=== PATIENT | male | born 1945 | race Caucasian/White ===

== ENCOUNTER 2017-11-10 20:40 | Outpatient (CLI) | payer OTHER, MEDICARE | END 2017-11-10 20:41 | disposition short-term general hospital (02) | LOC: EMS 20:40 | PROVIDERS: ATTEND Surgery | DX: R55 Syncope and collapse (principal); R10.9 Unspecified abdominal pain; R19.7 Diarrhea, unspecified | CPT/HCPCS: A0425; A0427 ==

== ENCOUNTER 2024-04-24 01:11 | Outpatient (CLI) | payer MEDICARE, OTHER | END 2024-04-24 23:59 | disposition critical access hospital (66) | LOC: EMS 01:11 | DX: R10.84 Generalized abdominal pain (principal); R14.0 Abdominal distension (gaseous); R23.1 Pallor; R42 Dizziness and giddiness; R11.0 Nausea | CPT/HCPCS: A0425; A0427 ==

== ENCOUNTER 2024-04-24 01:36 | Emergency (ER) | payer MEDICARE, OTHER ==
[2024-04-24 02:03] LABS: BASOPHILS % (AUTO) 0.2 %; HCT - HEMATOCRIT 39.9 % (42.0-52.0); HGB - HEMOGLOBIN 13.2 g/dL (14.0-18.0); LYMPHOCYTES % (AUTO) 8.1 %; MEAN CORPUSCULAR HEMOGLOBIN 31.1 pg (27.0-31.0); MEAN CORPUSCULAR HGB CONC 33.1 g/dL (32.0-36.0); MEAN CORPUSCULAR VOLUME 94.1 fL (80.0-94.0); MEAN PLATELET VOLUME 9.9 fL (7.4-11.4); MONOCYTES # (AUTO) 0.7 10^3/uL (0.0-1.0); MONOCYTES % (AUTO) 5.5 %; NEUTROPHILS # (AUTO) 10.1 10^3/uL (1.5-6.6); NEUTROPHILS % (AUTO) 85.9 %; PLT - PLATELET COUNT 215 10^3/uL (130-450); RED BLOOD COUNT 4.24 10^6/uL (4.70-6.10); RED CELL DISTRIBUTION WIDTH 12.6 % (12.0-15.0); WHITE BLOOD COUNT 11.8 x10^3/uL (4.8-10.8)
--- NOTE | 2024-04-24 02:10 | ED Physician Documentation ---
PD HPI ABD PAIN - Stated complaint Stated Complaint: ABD PAIN. CARDIOVERTED TODAY - Chief complaint Chief Complaint: Abd Pain - History obtained from History obtained from: Patient - Additional information Additional information: Patient is an 78-year-old male with a history of atrial fibrillation on Eliquis presenting for evaluation of generalized abdominal pain with associated nausea starting around 3:00 this afternoon. Patient was seen at the [facility] this morning for a cardioversion related to atrial flutter. He started to have pain on the way back home while [place] on the boat. Denies prior history of abdominal surgeries - Inguinal hernia repair. Decreased appetite tonight. Had a bowel movement this evening. No diarrhea. reports she is now having some lower abdominal pain with diarrhea this evening. Denies fever, chest pain, shortness of air. Last dose of Eliquis was at 11 PM. Review of Systems Constitutional: denies: Fever Cardiac: denies: Chest pain / pressure Respiratory: denies: Dyspnea GI: reports: Abdominal Pain, Nausea PD PAST MEDICAL HISTORY - Past Medical History Past Medical History: Yes Cardiovascular: Atrial fibrillation Respiratory: None Endocrine/Autoimmune: None GI: None : None Psych: None Musculoskeletal: None Derm: None - Present Medications Home Medications: Ambulatory Orders Medication Instructions Recorded Confirmed Amiodarone [Pacerone] 200 mg PO DAILY 04/24/24 04/24/24 Apixaban [Eliquis] 5 mg PO BID 04/24/24 04/24/24 Losartan Potassium 50 mg PO BID 04/24/24 04/24/24 Perindopril Erbumine 1.25 mg PO DAILY 04/24/24 04/24/24 Potassium Chloride 10 meq PO DAILY 04/24/24 04/24/24 amLODIPine [Norvasc] 5 mg PO DAILY 04/24/24 04/24/24 - Allergies Allergies/Adverse Reactions: Allergies Allergy/AdvReac Type Severity Reaction Status Date / Time No Known Drug Allergies Allergy Verified 04/24/24 01:43 - Social History Does the pt smoke?: No Smoking Status: Never smoker Does the pt drink ETOH?: No Does the pt have substance abuse?: No - Immunizations Immunizations are current?: Yes - POLST Patient has POLST: No PD ED PE NORMAL - General General: Alert and oriented X 3, No acute distress, Well developed/nourished - HEENT HEENT: Atraumatic, Moist mucous membranes, Pharynx benign - Neck Neck: Supple, no meningeal sign - Cardiac Cardiac: RRR, Strong equal pulses - Respiratory Respiratory: No respiratory distress, Clear bilaterally - Abdomen Abdomen: Normal bowel sounds, Soft, Non distended, Other (Generalized abdominal tenderness, no rebound) - Derm Derm: Warm and dry - Neuro Neuro: Normal speech Results - Vitals Vitals: Vital Signs - 24 hr 04/24/24 04/24/24 04/24/24 01:45 03:58 05:15 Temperature 36.5 C Heart Rate 65 56 L 87 Respiratory 16 20 16 Rate Blood Pressure 146/80 H 138/74 H 142/92 H O2 Saturation 100 98 98 If not protocol 2 2 : Oxygen Flow, liters/minute 04/24/24 07:00 Temperature Heart Rate 92 Respiratory 19 Rate Blood Pressure 129/94 H O2 Saturation 98 If not protocol 2 : Oxygen Flow, liters/minute Oxygen O2 Source Nasal cannula - EKG (time done) 0220 EKG releavant findings:: EKG personally interpreted by author of this note. Relevant findings are: Rate 56, normal sinus rhythm, no STEMI, QTc 455 - Labs Labs: Laboratory Tests 04/24/24 04/24/24 04/24/24 01:57 01:57 01:57 WBC 11.8 H RBC 4.24 L Hgb 13.2 L Hct 39.9 L MCV 94.1 H MCH 31.1 H MCHC 33.1 RDW 12.6 Plt Count 215 MPV 9.9 Neut # (Auto) 10.1 H Lymph # (Auto) 1.0 L Norman # (Auto) 0.7 Eos # (Auto) 0.0 Baso # (Auto) 0.0 Absolute Nucleated RBC 0.00 Nucleated RBC % 0.0 PT 16.1 H INR 1.5 H Sodium 135 Potassium 4.0 Chloride 98 L Carbon Dioxide 28 Anion Gap 9.0 BUN 23 H Creatinine 1.3 Estimated GFR (MDRD) 53 L Glucose 162 H POC Whole Bld Glucose Lactic Acid Calcium 9.6 Total Bilirubin 0.5 AST 13 ALT 15 Alkaline Phosphatase 41 L Total Protein 6.5 Albumin 4.1 Globulin 2.4 Albumin/Globulin Ratio 1.7 Lipase < 10 L 04/24/24 04/24/24 04/24/24 04:00 07:46 07:46 WBC 17.2 H RBC 4.99 Hgb 15.4 Hct 47.6 MCV 95.4 H MCH 30.9 MCHC 32.4 RDW 12.6 Plt Count 253 MPV 10.4 Neut # (Auto) 14.6 H Lymph # (Auto) 1.4 L Norman # (Auto) 1.1 H Eos # (Auto) 0.0 Baso # (Auto) 0.0 Absolute Nucleated RBC 0.00 Nucleated RBC % 0.0 PT INR Sodium 135 Potassium 3.9 Chloride 97 L Carbon Dioxide 25 Anion Gap 13.0 BUN 26 H Creatinine 1.6 H Estimated GFR (MDRD) 42 L Glucose 236 H POC Whole Bld Glucose Lactic Acid 1.3 Calcium 9.5 Total Bilirubin AST ALT Alkaline Phosphatase Total Protein Albumin Globulin Albumin/Globulin Ratio Lipase 04/24/24 04/24/24 07:46 08:34 WBC RBC Hgb Hct MCV MCH MCHC RDW Plt Count MPV Neut # (Auto) Lymph # (Auto) Norman # (Auto) Eos # (Auto) Baso # (Auto) Absolute Nucleated RBC Nucleated RBC % PT INR Sodium Potassium Chloride Carbon Dioxide Anion Gap BUN Creatinine Estimated GFR (MDRD) Glucose POC Whole Bld Glucose 294 H Lactic Acid 3.0 H* Calcium Total Bilirubin AST ALT Alkaline Phosphatase Total Protein Albumin Globulin Albumin/Globulin Ratio Lipase PD Medical Decision Making - ED course Complexity details: reviewed results, re-evaluated patient, d/w patient ED course: Patient is an 78-year-old male with a history of A-fib on Eliquis presenting for evaluation of abdominal pain with nausea today. He did undergo a cardioversion for atrial fibrillation earlier today. He did take his Eliquis this evening. CBC, chemistries were obtained and reviewed. WBC 11.8. Patient did require repeated doses of IV morphine and Dilaudid for pain control along with Zofran and IV fluids. Due to requiring repeated doses of pain medications I did have concerns for possible mesenteric ischemia with pain out of proportion and did order the CT scan of the abdomen pelvis as an angio. CT scan demonstrates a closed-loop bowel obstruction. I did consult with general surgery, Dr. Villar. Due to the patient's cardiac history and other comorbidities it is felt that he is too complex for patient for our critical access hospital and would be better served at a tertiary care facility with specialist available should complications arise related to his comorbidities. We have reached out to [facility] as this is where his ironer sock is as well as his primary care. NG tube was placed. Awaiting callback from General Surgery at shift change. [facility] aware of urgency for request for transfer. Pt signed out to oncoming provider at shift change. Departure - Departure Disposition: 02 Transfer Acute Care Hosp Clinical Impression: Small bowel obstruction Condition: Fair Forms: PCP List
[2024-04-24] MEDS: MORPHINE 2 MG/ML CARPUJECT IVP STA (02:15)
[2024-04-24] MEDS: ONDANSETRON 4 MG/2 ML VIAL IVP STA ×2 (02:15→04:37)
[2024-04-24] MEDS ORDERED: iohexoL-300 100 ML VIAL ONE (02:15)
[2024-04-24] MEDS: SODIUM CHLORIDE 0.9% 1,000 ML IV STA ×3 (02:16→09:27)
[2024-04-24 02:17] LABS: ALBUMIN 4.1 g/dL (3.2-5.5); ALBUMIN/GLOBULIN RATIO 1.7 (1.0-2.2); ALKALINE PHOSPHATASE 41 IU/L (42-121); ALT ALANINE AMINOTRANSFERASE 15 IU/L (10-60); AST ASPARTATE AMINOTRANSFERASE 13 IU/L (10-42); BILIRUBIN,TOTAL 0.5 mg/dL (0.2-1.0); BUN - BLOOD UREA NITROGEN 23 mg/dL (6-20); CALCIUM 9.6 mg/dL (8.5-10.3); CARBON DIOXIDE - CO2 28 mmol/L (21-32); CHLORIDE 98 mmol/L (101-111); CREATININE 1.3 mg/dL (0.6-1.3); GFR - MDRD 53 (>89); GLUCOSE 162 mg/dL (74-104); LIPASE < 10 U/L (11-82); SODIUM 135 mmol/L (135-145); TOTAL PROTEIN 6.5 g/dL (6.4-8.9)
[2024-04-24 02:19] LABS: INR 1.5 (0.8-1.2); PT - PROTHROMBIN TIME 16.1 secs (9.9-12.6)
[2024-04-24] MEDS: HYDROmorphone 1 MG/ML CARPUJECT IVP STA ×4 (03:04→09:20)
[2024-04-24] MEDS: iohexoL-300 100 ML VIAL IVP ONE (03:36)
[2024-04-24] MEDS: fentaNYL 100 MCG/2 ML VIAL IVP STA (04:57)
--- NOTE | 2024-04-24 05:25 | CONSULTATION NOTE ---
Surgery Consult - Consult Date Consult Date: 04/24/24 Requesting Provider: Tomas Canales - Chief Complaint Chief Complaint: Abdominal pain - Home Meds/Allergies Home Medications: Patient History Medication Instructions Recorded Confirmed Amiodarone [Pacerone] 04/24/24 Apixaban [Eliquis] 04/24/24 Losartan Potassium 50 mg PO 04/24/24 Potassium Chloride 10 meq PO 04/24/24 amLODIPine [Norvasc] 04/24/24 Allergies/Adverse Reactions: Allergies Allergy/AdvReac Type Severity Reaction Status Date / Time No Known Drug Allergies Allergy Verified 04/24/24 01:43 - Vital Signs Vital Signs: Last Vital Signs Temp 97.7 F 04/24/24 01:45 Pulse 87 04/24/24 05:15 Resp 16 04/24/24 05:15 BP 142/92 H 04/24/24 05:15 Pulse Ox 98 04/24/24 05:15 O2 Flow Rate 2 04/24/24 05:15 Intake & Output: Intake & Output 04/21/24 04/22/24 04/23/24 04/24/24 23:59 23:59 23:59 23:59 Intake Total 1000 Balance 1000 - Lab Results Result Diagrams: 04/24/24 01:57 04/24/24 01:57 - Consultation Note Consultation Note: General Surgery Consultation Note Assessment: 1) Abdominal pain - suspect closed loop obstruction 2) CHF 3) Atrial fibrillation 4) Therapeutic anticoagulation 5) COPD Recommendation: 1) NGT decompression of the gastric lumen as the stomach is markedly distended 2) Analgesics 3) Transfer to Tertiary Care Facility for surgical evaluation and management due to his significant cardiac history and other co-morbidities the management of which will require sub-specialty care unavailable at this facility <><><><><><><><><><> Reason for Consultation Closed loop SBO Chief Complaint Abdominal pain OBED Bueno is an 78 year old male who underwent cardioversion at yesterday morning for atrial fibrillation with a rapid ventricular response. On the way home around 1500 he developed the sudden onset of generalized abdominal pain that was sharp, constant, non-radiating and located in what he describes as a [place] around his abdomen. Nothing made it worse or better. At home he was able to evacuate a small bowel motion but this did not improve his symptoms. He remained uncomfortable all evening but did not vomit because he tells me he just is unable to do so. Around midnight his pain was so intense that he came to the ED for evaluation. A CTA scan was performed because the ED provider thought he may have mesenteric ischemia. The CTA revealed a closed loop small bowel obstruction. Myles denies previous intra-abdominal surgery. He has been evaluated recently by his PCP for a change in his bowel habits but the results of that evaluation are not available to me. He tells me he has not passed stool or flatus from the rectum since late yesterday afternoon. Past Medical History Atrial fibrillation SVT requiring 2 previous cardiac ablation procedures CHF History of 12 cardioversion procedures Prostate cancer Past Surgical History RIHR 2015 Cardiac ablation x 2 Family History CAD [place] ; Does not [place] Current Medications See "Medication" section Allergies See "Allergy" section ROS Pertinent positives Unrelenting generalized abdominal pain All other reviewed systems negative Physical Examination Vital Signs: See "Vital Signs" section BMI: 27 GENERAL APPEARANCE: Normal development, normal body habitus, normal grooming PSYCHIATRIC: AAO; Cooperative; Moderated abdominal discomfort EYES: Pupils equal, round and reactive to light, sclera anicteric EARS, NOSE, MOUTH, THROAT: Hearing normal, Oral mucous membranes moist and without lesions; NECK: No crepitus, lymphadenopathy, or thyromegaly LUNGS: Clear to auscultation without wheezing; No use of accessory muscles to breathe CARDIOVASCULAR: Heart-NSR without murmurs; Palpable carotid arteries - no bruits; Aorta, Femoral, Pedal pulses palpable; Peripheral edema [] ABD: Distended, hypoactive BS, Fullness and tenderness to palpation in the RLQ; No peritoneal signs such as rebound or referred rebound LYMPHATIC: Neck, Axillae, Groin no palpable adenopathy EXTREMITIES: No clubbing, cyanosis, infections SKIN: Anicteric; No rashes, lesions, Ulcerations Labs See "Labs" section Lactic acid 1.3; WBC 11.8; INR 1.5; Cr 1.3; Glu 162 Imaging CTA abd/pelvis - Markedly distended stomach; Normal small bowel caliber and gas and stool in normal appearing colon; In the right abdomen there appears to be a dilated loop of small bowel that is fluid filled clearly distinct and different from the remainder of the intra-abdominal small bowel. There is ascites about the liver - My Interpretation - KAROLINE All images were personally reviewed by me for this encounter. Richard Villar MD, [facility] General Surgery Service [phone]
[2024-04-24] MEDS: lidocaine 1% 20 ML MDV SUBQ ONE (05:56)
[2024-04-24 07:50] LABS: BASOPHILS % (AUTO) 0.1 %; EOSINOPHILS % (AUTO) 0.1 %; HCT - HEMATOCRIT 47.6 % (42.0-52.0); HGB - HEMOGLOBIN 15.4 g/dL (14.0-18.0); LYMPHOCYTES # (AUTO) 1.4 10^3/uL (1.5-3.5); LYMPHOCYTES % (AUTO) 8.2 %; MEAN CORPUSCULAR HEMOGLOBIN 30.9 pg (27.0-31.0); MEAN CORPUSCULAR HGB CONC 32.4 g/dL (32.0-36.0); MEAN CORPUSCULAR VOLUME 95.4 fL (80.0-94.0); MEAN PLATELET VOLUME 10.4 fL (7.4-11.4); MONOCYTES # (AUTO) 1.1 10^3/uL (0.0-1.0); MONOCYTES % (AUTO) 6.1 %; NEUTROPHILS # (AUTO) 14.6 10^3/uL (1.5-6.6); NEUTROPHILS % (AUTO) 84.9 %; PLT - PLATELET COUNT 253 10^3/uL (130-450); RED BLOOD COUNT 4.99 10^6/uL (4.70-6.10); RED CELL DISTRIBUTION WIDTH 12.6 % (12.0-15.0); WHITE BLOOD COUNT 17.2 x10^3/uL (4.8-10.8)
[2024-04-24 08:07] LABS: CALCIUM 9.5 mg/dL (8.5-10.3); CREATININE 1.6 mg/dL (0.6-1.3); POTASSIUM 3.9 mmol/L (3.5-4.5)
[2024-04-24] MEDS: LACTATED RINGERS 1,000 ML IV STA (08:40)
--- NOTE | 2024-04-24 08:58 | CT Report ---
PROCEDURE: Angio Abdomen/Pelvis INDICATIONS: generalized abdominal pain CONTRAST: OMNI 300, 100mls TECHNIQUE: After the administration of intravenous contrast, 2.5 mm thick sections acquired from the diaphragm t o the symphysis. 10 mm maximum-intensity projection (MIP) reformats were then acquired. For radiati on dose reduction, the following was used: automated exposure control, adjustment of mA and/or kV ac cording to patient size. COMPARISON: None FINDINGS: Image quality: Excellent. Aorta: Scattered atheromatous calcification are present throughout the abdominal aorta and iliac art eries without focal hemodynamically significant stenosis. No aneurysmal dilatation or dissection. Mesenteric arteries: Celiac trunk, superior and inferior mesenteric arteries appear patent. The warren al arteries are patent. Right pelvic arteries: Patent with mild atheromatous calcification. No significant stenosis. Left pelvic arteries: Patent with mild atheromatous calcification. No significant stenosis. Extravascular soft tissues: Lung bases are clear. Heart size is normal. Liver and spleen are arian l in size and enhancement. Gallbladder is unremarkable. Biliary system is non dilated. Pancreas en hances normally. No adrenal nodules. Kidneys are normal in size and enhancement, without hydronephr osis. A low density exophytic cyst is present within the upper pole of the right kidney. The stomach is distended with fluid and gas. Proximal and distal small bowel demonstrates normal marjan prabhjot and wall thickness. There are multiple loops of dilated small bowel within the abdomen, some of w hich are opacified with contrast, and some of which are fluid-filled... These are poorly characterize given the absence of portal venous phase contrast or oral contrast. Trace fat stranding and free flu id surrounds this dilated small bowel. High density material layers in 1 dilated loop of small bowel suggesting the presence of ingested radiopaque contents. Hemorrhage is considered less likely; howeve r cannot be entirely excluded. Stool is present throughout the ascending and transverse colon and the descending and sigmoid colon appears decompressed. The appendix is thin-walled and gas-filled. There is a small amount of low-density free perihepatic and perisplenic fluid. No retroperitoneal or mesenteric adenopathy. No ventral hernias. No suspicious bony lesions. No vertebral body compressi on fractures. IMPRESSION: 1. Normal course and caliber of the aorta without dissection or hemodynamically significant stenosis. All mesenteric arteries are widely patent. Pelvic arteries are patent. 2. Multiple dilated loops of small bowel with decompressed upstream and downstream small bowel suspic ious for a closed loop obstruction. Emergent surgical consultation recommended. The bowel is poorly c haracterized given the lack of portal venous phase opacification and lack of oral contrast within the dilated bowel. 3. Normal appendix. These findings are concordant with the overnight interpretation. Reviewed by: Angella Houston MD on 04/24/2024 8:57 AM PDT Approved by: Angella Houston MD on 04/24/2024 8:57 AM PDT Station ID: [id number]
--- NOTE | 2024-04-24 08:59 | XRAY Report ---
PROCEDURE: No-Charge 1V Abdomen INDICATIONS: post NG TECHNIQUE: 1 view of the abdomen were acquired. COMPARISON: None. FINDINGS: Surgical changes and devices: An enteric tube is projected over the expected location of the gastric fundus. The distal side hole is projected over the gastroesophageal junction. Bowel: No pneumoperitoneum. The bowel gas pattern is normal. Stool load within normal limits. Soft tissues: No masses; visualized solid organ contours appear normal in size. No suspicious abdom inal calcifications. Bones: No suspicious bony abnormalities. IMPRESSION: NG tube as above. Reviewed by: Angella Houston MD on 04/24/2024 8:58 AM PDT Approved by: Angella Houston MD on 04/24/2024 8:58 AM PDT Station ID: [id number]
--- NOTE | 2024-04-24 09:12 | ED Physician Documentation ---
ED Addendum - Addendum Addendum: 04/24/24 09:09 The patient has had persisting pain. He was given a repeat dose of Dilaudid a little bit ago. Still having pain. General abdominal tenderness on exam just now. Repeat blood tests shortly ago was increasing white count from 11-17,000. His lactate is increasing from 1.5 to now 3.0. Concern for developing ischemic bowel. Report from prior shift is the concern apparently combined with surgery and anesthesia the patient is higher risk because of his history of intermittent A- fib and are inability to respond to that in the ICU in the OR or on the floor/ICU. We do not do cardioversions here or have cardiology. As such the patient was looking to be transferred. We did get a call from and I talked with the surgeon on-call, Dr. Greene who is accepting of the patient but wants the SICU attending looped in the conversation. Transfer center says they do have SICU bed available so there would not be a delay in transfer once the conversation ensues. I am anticipating a call back from the tie fastener. We have the helicopter on standby. The patient is given IV fluid IV fluid bolus. Will give him some more pain medicines. His blood sugar did decrease blood pressure did decrease a little bit is now 102 systolic. He does have 2 IVs of good caliber in place. NG tube is in place Gamez is in place. Disposition: The patient will be transferred to acute care facility in guarded condition Diagnoses: 1. Acute abdominal pain 2. Acute small bowel obstruction 3. History of intermittent atrial fibrillation 4. Status post cardioversion 5. Anticoagulant long-term use
[2024-04-24] MEDS: AMPICILLIN/SULBACTAM 1.5 GM in SODIUM CHLORIDE 0.9% MINIBAG 100 ML IV STA (09:18)
[2024-04-24] MEDS: KETOROLAC 15 MG/ML VIAL IVP STA (09:19)
[2024-04-24] MEDS: PIPERACILLIN/TAZOBACTAM 3.375 GM in SODIUM CHLORIDE 0.9% MINIBAG 100 ML IV STA (09:34)
[2024-04-24 10:01] VITALS: BP 111/78; O2SAT 91
[2024-04-24 10:17] LABS: BILIRUBIN,URINE NEGATIVE (NEGATIVE); GLUCOSE, URINE (UA) NEGATIVE (NEGATIVE); KETONES,URINE (UA) 15 mg/dL (NEGATIVE); LEUKOCYTE ESTERASE, URINE NEGATIVE (NEGATIVE); NITRITE,URINE NEGATIVE (NEGATIVE); OCCULT BLOOD,URINE NEGATIVE (NEGATIVE); PH,URINE 5.5 PH (5.0-7.5); PROTEIN,URINE TRACE mg/dL (NEGATIVE); UROBILINOGEN,URINE 0.2 (NORMAL) E.U./dL (NORMAL)
[2024-04-24 10:28] LABS: CLARITY,URINE CLEAR (CLEAR)
== END 2024-04-24 10:09 | disposition short-term general hospital (02) ==
LOC: EDUNIT# → ED 01:36
DX: K56.609 Unspecified intestinal obstruction, unspecified as to partial versus complete obstruction (principal); I48.91 Unspecified atrial fibrillation; Z79.01 Long term (current) use of anticoagulants
CPT/HCPCS: 36415; 51702; 74018; 74174; 80048; 80053; 81003; 83605; 83690; 85025; 85610; 93005; 96361; 96365; 96375; 96376; 99285; J1170; J7120; Q9967; 81001; 87086